=== PATIENT | male | born 1985 | race Caucasian/White ===

== ENCOUNTER 2019-06-28 18:57 | Emergency (ER) | payer OTHER ==
--- NOTE | 2019-06-28 19:00 | ERPHSYRPT ---
- History of Present Illness Time Seen by Provider: 06/28/19 19:00 Source: patient, family Exam Limitations: no limitations Physician History: 33 y/o white male presents with a couple day h/o cough, sore throat and fever. pt denies n/v/d. pt denies abd pain. Timing/Duration: day(s) (2 to 3 ) Cough Quality/Degree: moderate, dry cough Possible Cause: no prior episodes Modifying Factors: Improves With: coughing Associated Symptoms: fever, cough, sore throat Allergies/Adverse Reactions: No Known Drug Allergies Allergy (Unverified 06/28/19 19:03) - Review of Systems Constitutional: No Symptoms Eyes: No Symptoms Ears, Nose, & Throat: Throat Pain Respiratory: Cough Cardiac: No Symptoms Abdominal/Gastrointestinal: No Symptoms Genitourinary Symptoms: No Symptoms Musculoskeletal: No Symptoms Skin: No Symptoms Neurological: No Symptoms Psychological: No Symptoms Endocrine: No Symptoms Hematologic/Lymphatic: No Symptoms Immunological/Allergic: No Symptoms All Other Systems: Reviewed and Negative - Past Medical History Pertinent Past Medical History: Yes Neurological History: No Pertinent History ENT History: No Pertinent History Cardiac History: No Pertinent History Respiratory History: No Pertinent History Endocrine Medical History: No Pertinent History Musculoskeletal History: No Pertinent History GI Medical History: No Pertinent History History: No Pertinent History Psycho-Social History: No Pertinent History Male Reproductive Disorders: No Pertinent History - Past Surgical History Neuro Surgical History: No Pertinent History Cardiac: No Pertinent History Respiratory: No Pertinent History Gastrointestinal: No Pertinent History Genitourinary: No Pertinent History Musculoskeletal: No Pertinent History Male Surgical History: No Pertinent History - Nursing Vital Signs Nursing Vital Signs: Initial Vital Signs Temperature 100.0 F 06/28/19 18:58 Pulse Rate 128 H 06/28/19 18:58 Respiratory Rate 24 06/28/19 18:58 Blood Pressure 149/96 06/28/19 18:58 O2 Sat by Pulse Oximetry 87 L 06/28/19 18:58 Pain Scale Pain Intensity 4 - Physical Exam General Appearance: mild distress, alert, anxiety, obese Eye Exam: PERRL/EOMI, eyes nml inspection Ears, Nose, Throat Exam: normal ENT inspection, moist mucous membranes, pharyngeal erythema Neck Exam: normal inspection, non-tender, supple, full range of motion Respiratory Exam: normal breath sounds, lungs clear, airway intact, No chest tenderness, No respiratory distress Cardiovascular Exam: normal heart sounds, normal peripheral pulses, tachycardia Gastrointestinal/Abdomen Exam: soft, normal bowel sounds, No tenderness Back Exam: normal inspection, normal range of motion, vertebral tenderness, No CVA tenderness Extremity Exam: normal inspection, normal range of motion, pelvis stable Neurologic Exam: alert, oriented x 3, cooperative, campus chaplain II-XII nml as tested, normal mood/affect, nml cerebellar function, nml station & gait Skin Exam: normal color, warm, dry Lymphatic Exam: No adenopathy SpO2 Interpretation: borderline oxygenation O2 Delivery: Room Air - Course Nursing assessment & vital signs reviewed: Yes Ordered Tests: Active Orders 24 hr Category Date Time Status IV Insertion STAT Care 06/28/19 19:17 Active Pulse Oximetry (ED) STAT Care 06/28/19 19:17 Active CHEST 1 VIEW (PORTABLE) Stat Exams 06/28/19 19:19 Taken BLOOD CULTURE Stat Lab 06/28/19 19:08 Received CBC W DIFF Stat Lab 06/28/19 19:08 Completed CMP Stat Lab 06/28/19 19:08 Completed Lactic Acid Stat Lab 06/28/19 19:50 Completed Manual Differential NC Stat Lab 06/28/19 19:08 Completed Keith Screen Stat Lab 06/28/19 19:08 Completed UA W/RFX UR CULTURE Stat Lab 06/28/19 21:35 Completed Peak Expiratory Flow Rate ONCE RT 06/28/19 20:19 Active Respiratory Therapy Assessment DAILY RT 06/28/19 20:20 Active Medication Summary Generic Name Dose Route Start Last Admin Trade Name Freq PRN Reason Stop Dose Admin Sodium Chloride 1,000 mls @ 999 mls/hr 06/28/19 22:21 Sodium Chloride 0.9% 1000 Ml IV 06/28/19 23:21 .Q1H1M STA Discontinued Medications Generic Name Dose Route Start Last Admin Trade Name Freq PRN Reason Stop Dose Admin Hydrocodone Bitart/Acetaminophen 15 ml 06/28/19 19:20 06/28/19 20:21 Hydrocodone-Acetamin 2.5-108/5 Ml Solution PO 06/28/19 19:21 15 ml STAT STA Administration Hydrocodone Bitart/Acetaminophen Confirm 06/28/19 20:17 Hydrocodone-Acetamin 2.5-108/5 Ml Solution Administered 06/28/19 20:18 Dose 15 ml .ROUTE .STK-MED ONE Albuterol Sulfate 2.5 mg 06/28/19 20:19 06/28/19 20:22 Proventil 2.5 Mg/3 Ml Neb IH 06/28/19 20:20 2.5 mg STAT ONE Administration Albuterol Sulfate Confirm 06/28/19 20:18 Proventil 2.5 Mg/3 Ml Neb Administered 06/28/19 20:19 Dose 2.5 mg IH .STK-MED ONE Sodium Chloride 1,000 mls @ 999 mls/hr 06/28/19 19:17 06/28/19 20:19 Sodium Chloride 0.9% 1000 Ml IV 06/28/19 20:17 999 mls/hr .Q1H1M STA Administration Ceftriaxone Sodium/Dextrose 1 g in 50 mls @ 100 mls/hr 06/28/19 19:57 20:20 Rocephin 1 Gm-D5w 50 Ml Bag IV 06/28/19 20:26 100 mls/hr STAT STA 100 mls/hr Administration Sodium Chloride Confirm 06/28/19 20:18 Sodium Chloride 0.9% 1000 Ml Administered 06/28/19 20:19 Dose 1,000 mls @ ud .ROUTE .STK-MED ONE Ceftriaxone Sodium/Dextrose Confirm 06/28/19 20:18 Rocephin 1 Gm-D5w 50 Ml Bag Administered 06/28/19 20:19 Dose 1 g in 50 mls @ ud IV .STK-MED ONE Ibuprofen 600 mg 06/28/19 19:17 06/28/19 20:21 Motrin 600 Mg PO 06/28/19 19:18 600 mg STAT STA Administration Ibuprofen Confirm 06/28/19 20:17 Motrin 600 Mg Administered 06/28/19 20:18 Dose 600 mg .ROUTE .STK-MED ONE Methylprednisolone Sodium Succinate 125 mg 06/28/19 19:57 06/28/19 20:20 Solu-Medrol 125 Mg IV 06/28/19 19:58 125 mg STAT ONE Administration Methylprednisolone Sodium Succinate Confirm 06/28/19 20:18 Solu-Medrol 125 Mg Administered 06/28/19 20:19 Dose 125 mg .ROUTE .STK-MED ONE Ondansetron HCl 4 mg 06/28/19 19:17 06/28/19 20:20 Zofran 4 Mg/2 Ml Vial IV 06/28/19 19:18 4 mg STAT STA Administration Ondansetron HCl Confirm 06/28/19 20:17 Zofran 4 Mg/2 Ml Vial Administered 06/28/19 20:18 Dose 4 mg .ROUTE .[facility]-MED ONE Lab/Rad Data: Laboratory Result Diagrams 06/28/19 19:08 06/28/19 19:08 Laboratory Results 06/28/19 06/28/19 06/28/19 Range/Units 21:35 19:50 19:43 WBC (4.0-10.5) K/mm3 RBC (4.1-5.6) M/mm3 Hgb (12.5-18.0) gm/dl Hct (42-50) % MCV (78-100) fl MCH (26-32) pg MCHC (32-36) g/dl RDW (11.5-14.0) % Plt Count (150-450) K/mm3 MPV (7.5-11.0) fl Sodium (137-145) mmol/L Potassium (3.5-5.1) mmol/L Chloride (98-107) mmol/L Carbon Dioxide (22-30) mmol/L Anion Gap (5-15) MEQ/L BUN (9-20) mg/dL Creatinine (0.66-1.25) mg/dL Estimated GFR ML/MIN Glucose (74-106) mg/dL Lactic Acid 1.5 (0.4-2.0) Calcium (8.4-10.2) mg/dL Total Bilirubin (0.2-1.3) mg/dL AST (17-59) U/L ALT (0-50) U/L Alkaline Phosphatase (38-126) U/L Serum Total Protein (6.3-8.2) g/dL Albumin (3.5-5.0) g/dL Urine Color OLVIN (YELLOW) Urine Appearance SLIGHTLY CLOUDY (CLEAR) Urine pH 5.0 (5-6) Ur Specific [place] 1.027 (1.005-1.025) Urine Protein 100 (Negative) Urine Ketones TRACE (NEGATIVE) Urine Blood SMALL (0-5) Zhen/ul Urine Nitrite NEGATIVE (NEGATIVE) Urine Bilirubin NEGATIVE (NEGATIVE) Urine Urobilinogen 2 (0-1) mg/dL Ur Leukocyte Esterase NEGATIVE (NEGATIVE) Urine WBC (Auto) 0-2 (0-5) /HPF Urine RBC (Auto) 0-2 (0-2) /HPF U Epithel Cells (Auto) RARE (FEW) /HPF Urine Bacteria (Auto) NONE (NEGATIVE) /HPF Urine Mucus (Auto) SLIGHT (NEGATIVE) /HPF Urine Culture Reflexed NO (NO) Urine Glucose NEGATIVE (NEGATIVE) mg/dL Monoscreen (Negative) Influenza Type A Ag NEGATIVE (NEGATIVE) Influenza Type B Ag NEGATIVE (NEGATIVE) RSV (PCR) NEGATIVE (Negative) Group A Strep Antibody POSITIVE (NEGATIVE) 06/28/19 06/28/19 06/28/19 Range/Units 19:08 19:08 19:08 WBC 20.4 H (4.0-10.5) K/mm3 RBC 5.08 (4.1-5.6) M/mm3 Hgb 14.3 (12.5-18.0) gm/dl Hct 44.1 (42-50) % MCV 86.8 (78-100) fl MCH 28.1 (26-32) pg MCHC 32.4 (32-36) g/dl RDW 14.0 (11.5-14.0) % Plt Count 291 (150-450) K/mm3 MPV 12.8 H (7.5-11.0) fl Sodium 132 L (137-145) mmol/L Potassium 4.3 (3.5-5.1) mmol/L Chloride 93 L (98-107) mmol/L Carbon Dioxide 30 (22-30) mmol/L Anion Gap 12.8 (5-15) MEQ/L BUN 10 (9-20) mg/dL Creatinine 0.98 (0.66-1.25) mg/dL Estimated GFR > 60.0 ML/MIN Glucose 133 H (74-106) mg/dL Lactic Acid (0.4-2.0) Calcium 9.6 (8.4-10.2) mg/dL Total Bilirubin 0.90 (0.2-1.3) mg/dL AST 55 (17-59) U/L ALT 73 H (0-50) U/L Alkaline Phosphatase 128 H (38-126) U/L Serum Total Protein 9.0 H (6.3-8.2) g/dL Albumin 4.4 (3.5-5.0) g/dL Urine Color (YELLOW) Urine Appearance (CLEAR) Urine pH (5-6) Ur Specific [place] (1.005-1.025) Urine Protein (Negative) Urine Ketones (NEGATIVE) Urine Blood (0-5) Zhen/ul Urine Nitrite (NEGATIVE) Urine Bilirubin (NEGATIVE) Urine Urobilinogen (0-1) mg/dL Ur Leukocyte Esterase (NEGATIVE) Urine WBC (Auto) (0-5) /HPF Urine RBC (Auto) (0-2) /HPF U Epithel Cells (Auto) (FEW) /HPF Urine Bacteria (Auto) (NEGATIVE) /HPF Urine Mucus (Auto) (NEGATIVE) /HPF Urine Culture Reflexed (NO) Urine Glucose (NEGATIVE) mg/dL Monoscreen NEGATIVE (Negative) Influenza Type A Ag (NEGATIVE) Influenza Type B Ag (NEGATIVE) RSV (PCR) (Negative) Group A Strep Antibody (NEGATIVE) - Progress Progress: improved Air Movement: good Progress Note: 06/28/19 20:22 cxr-right perihilar and right lower lobe infiltrate 06/28/19 22:33 pt states he is feeling much better and does not wish to be transferred or admitted. he feels well enough to go home. will give pt another liter of fluid and provide cough medicine for home. Blood Culture(s) Obtained: Yes Antibiotics given: Yes Counseled pt/family regarding: lab results, diagnosis, need for follow-up, rad results - Departure Departure Disposition: Home Clinical Impression: Pneumonia, Strep pharyngitis Condition: Stable Critical Care Time: No Referrals: NAIMA HOLLY [ACTIVE STAFF] - Additional Instructions: drink plenty of fluids. add ibuprofen for fever. follow up with primary doctor for persistent symptoms Prescriptions: Albuterol 8 gm Mdi Hfa [Ventolin Hfa MDI] 8 gm IH Q4H #1 hfa.aer.ad Azithromycin 250 mg [Zithromax 250 MG TABLET] 250 mg PO ZPACK #6 tablet Hydrocodone Bit/Acetaminophen [Hydrocodone-Acetaminophen Soln] 10 ml PO Q6H # 120 ml Prednisone 10 mg [Deltasone 10 mg] 10 mg PO TID #12 tablet
[2019-06-28] MEDS ORDERED: MOTRIN 600 MG PO STA (19:17)
[2019-06-28] MEDS ORDERED: Zofran 4 MG/2 ML VIAL IV STA (19:17)
[2019-06-28] MEDS ORDERED: Sodium Chloride 0.9% 1000 ML 1,000 ML IV STA ×2 (19:17→22:21)
[2019-06-28] MEDS ORDERED: HYDROCODONE-ACETAMIN 2.5-108/5 ML SOLUTION PO STA ×2 (19:20→22:39)
[2019-06-28 19:28] LABS: Hematocrit 44.1 % (42-50); Hemoglobin 14.3 gm/dl (12.5-18.0); Mean Cell Volume 86.8 fl (78-100); Mean Corpuscular Hemoglobin 28.1 pg (26-32); Mean Corpuscular Hgb Concent. 32.4 g/dl (32-36); Mean Platelet Volume 12.8 fl (7.5-11.0); Platelet Count 291 K/mm3 (150-450); Red Blood Count 5.08 M/mm3 (4.1-5.6); White Blood Count 20.4 K/mm3 (4.0-10.5)
[2019-06-28 19:37] LABS: ALBUMIN 4.4 g/dL (3.5-5.0); ALKALINE PHOSPHATASE 128 U/L (38-126); ANION GAP 12.8 MEQ/L (5-15); BLOOD UREA NITROGEN 10 mg/dL (9-20); CHLORIDE 93 mmol/L (98-107); Calcium 9.6 mg/dL (8.4-10.2); Carbon Dioxide 30 mmol/L (22-30); Creatinine 1 0.98 mg/dL (0.66-1.25); Glucose 133 mg/dL (74-106); Potassium 4.3 mmol/L (3.5-5.1); SGOT/AST 55 U/L (17-59); SGPT/ALT 73 U/L (0-50); SODIUM 132 mmol/L (137-145)
[2019-06-28] MEDS ORDERED: ROCEPHIN 1 Gm-D5w 50 ml Bag** 1 G/50 ML IVPB IV STA (19:57)
[2019-06-28] MEDS ORDERED: solu-MEDROL 125 MG IV ONE (19:57)
[2019-06-28] MEDS ORDERED: HYDROCODONE-ACETAMIN 2.5-108/5 ML SOLUTION ONE (20:17)
[2019-06-28] MEDS ORDERED: MOTRIN 600 MG ONE (20:17)
[2019-06-28] MEDS ORDERED: Zofran 4 MG/2 ML VIAL ONE (20:17)
[2019-06-28] MEDS ORDERED: solu-MEDROL 125 MG ONE (20:18)
[2019-06-28] MEDS ORDERED: Sodium Chloride 0.9% 1000 ML 1,000 ML ONE ×2 (20:18→22:38)
[2019-06-28] MEDS ORDERED: PROVENTIL 2.5 MG/3 ML NEB IH ONE ×2 (20:18→20:19)
[2019-06-28] MEDS ORDERED: ROCEPHIN 1 Gm-D5w 50 ml Bag** 1 G/50 ML IVPB IV ONE (20:18)
[2019-06-28 20:29] LABS: INFLUENZA A NEGATIVE (NEGATIVE); INFLUENZA B NEGATIVE (NEGATIVE); RESPIRATORY SYNCTIAL VIRUS NEGATIVE (Negative)
[2019-06-28 21:06] VITALS: BP 120/69; PULSE 116; O2SAT 94
[2019-06-28 21:54] LABS: Appearance SLIGHTLY CLOUDY (CLEAR); Bilirubin NEGATIVE (NEGATIVE); Blood SMALL Ery/ul (0-5); Epithelial Cells RARE /HPF (FEW); Glucose NEGATIVE (NEGATIVE); Ketones TRACE (NEGATIVE); Leukocyte Esterase NEGATIVE (NEGATIVE); Mucus SLIGHT /HPF (NEGATIVE); Nitrite NEGATIVE (NEGATIVE); Protein,Urine Dip 100 (Negative); RBC 0-2 /HPF (0-2); Specific Gravity 1.027 (1.005-1.025); Urobilinogen 2 mg/dL (0-1); WBC 0-2 /HPF (0-5)
[2019-06-29 05:53] LABS: Basophil 1 % (0.0-1.0); Eosinophil 1 % (0.00-3.0); Lymphocytes 13 % (24-44); Monocyte 2 % (0.0-12.0); Neutrophils 83 % (36.-66.); Platelet Estimate NORMAL (NORMAL); Total Cells Counted 100
--- NOTE | 2019-06-29 08:45 | XRAY ---
Indication: Fever and cough. Comparison: None Portable chest demonstrates hazy right base infiltrate/atelectasis. Remaining heart and left lung normal. Bony thorax intact.
== END 2019-06-28 23:45 | disposition home or self-care (01) ==
LOC: ED 18:57
DX: J18.9 Pneumonia, unspecified organism (principal); J02.0 Streptococcal pharyngitis; R05 Cough; R50.9 Fever, unspecified
CPT/HCPCS: 36415; 71045; 80053; 81001; 83605; 85025; 86308; 87040; 87631; 87651; 94150; 94640; 94760; 96360; 96361; 96365; 96374; 96375; 99284; J0696; J2405; J2930; J7609; A9270-GY